=== PATIENT | male | born 1940 ===

== ENCOUNTER → 2017-12-16 17:36 | Outpatient (REF) | payer MEDICARE, OTHER, SELFPAY ==
[2017-12-16 18:12] LABS: Add Manual Diff / Slide Review NO; Basophils Percent Auto 1.3 % (0-2); Eosinophils Percent Auto 3.6 % (2-4); Hematocrit 39.7 % (41-53); Hemoglobin 13.8 g/dL (13.5-17.5); Lymphocytes Percent Auto 14.5 % (25-40); Mean Corpuscular HGB Conc 34.7 % (30-36); Mean Corpuscular Hemoglobin 31.9 PG (26-34); Monocytes Percent Auto 11.9 % (3-14); Neutrophils Absolute Auto 4000 /uL (3000-5900); Neutrophils Percent Auto 68.7 % (50-75); Platelet Count 96 X10^3/uL (150-400); Red Blood Cell Count 4.31 X10^6/uL (4.5-5.9); Red Cell Distribution Width 14.8 % (11.6-14.8); White Blood Cell Count 5.9 X10^3/uL (4.5-11.0)
[2017-12-16 18:30] LABS: Erythrocyte Sedimentation Rate 19 MM/HR (0-15)
[2017-12-16 19:16] LABS: Reticulocyte Count, Percent 2.4 % (0.87-2.60)
== END ==
LOC: LAB 17:36
PROVIDERS: Visit Provider Family Medicine
DX: D75.89 Other specified diseases of blood and blood-forming organs (principal)
CPT/HCPCS: 36415; 85025; 85045; 85651

== ENCOUNTER → 2018-02-17 19:23 | Outpatient (REF) | payer MEDICARE, OTHER, SELFPAY ==
[2018-02-17 19:47] LABS: Uric Acid 5.1 mg/dL (3.5-8.5)
== END ==
LOC: LAB 19:23
PROVIDERS: Visit Provider Family Medicine
DX: M10.9 Gout, unspecified (principal)
CPT/HCPCS: 36415; 84550